=== PATIENT | female | born 1980 | race Caucasian/White ===

== ENCOUNTER 2019-03-09 15:13 | Emergency (ER) | payer MEDICAID ==
[~2019-03-09] VITALS: Ht 160 cm; Wt 58.1 kg
[2019-03-09 15:18] VITALS: Ht 160 cm; Wt 58.1 kg
[2019-03-09 16:22] LABS: BASOPHIL % 0.3 % (0-2); PLATELET COUNT 279 x10^3mcL (130-400)
[2019-03-09 16:28] LABS: CALCIUM 9.2 mg/dL (8.5-10.1); CARBON DIOXIDE 26.2 mmol/L (21-32); CHLORIDE SERUM 101 mmol/L (98-107); CREATININE SERUM 0.6 mg/dL (0.6-1.0); GFR1 > 60 mL/min; GLUCOSE SERUM 94 mg/dL (74-106); POTASSIUM SERUM 4.2 mmol/L (3.5-5.1); SODIUM SERUM 138 mmol/L (136-145)
[2019-03-09 16:33] LABS: ALBUMIN 4.3 g/dL (3.4-5.0); ALKALINE PHOSPHATASE 114 U/L (46-116); ALT/SGPT 68 U/L (14-59); AST/SGOT 115 U/L (15-37); BILIRUBIN TOTAL 0.34 mg/dL (0.20-1.00); LIPASE 396 IU/L (73-393); RED CELL DISTRIBUTION WIDTH 19.6 % (11.5-14.5)
[2019-03-09 16:34] LABS: TOTAL PROTEIN, SERUM 9.4 g/dL (6.4-8.2)
[2019-03-09 16:51] LABS: FREE T4 0.89 ng/dL (0.76-1.46); FREE THYROXINE INDEX 1.6 ug/dL (1.4-4.5); T4(THYROXINE) 4.9 ug/dL (4.7-13.3)
[2019-03-09 17:14] LABS: T3 TOTAL 0.74 ng/mL
[2019-03-09 18:09] VITALS: BP 132/85
== END 2019-03-09 18:11 | disposition home or self-care (01) ==
LOC: ED 15:13
PROVIDERS: Emergency Medicine
DX: K59.00 Constipation, unspecified (principal); F10.20 Alcohol dependence, uncomplicated; F17.210 Nicotine dependence, cigarettes, uncomplicated; Z98.51 Tubal ligation status; Y90.9 Presence of alcohol in blood, level not specified
CPT/HCPCS: 36415; 84439; 99406; Q0092